=== PATIENT | female | born 1975 | race Hispanic/Latino ===

== ENCOUNTER 2018-05-10 17:00 | Inpatient (IN) | payer BC ==
--- NOTE | 2018-05-10 18:27 | RAD ---
Date of service: 05/10/2018 PROCEDURE: Right Ankle Radiographs. HISTORY: trauma COMPARISON: None available. FINDINGS: BONES: There is an acute mildly laterally and posterior displaced fracture in the lateral malleolus. Bone mineralization and alignment is normal. JOINTS: Small joint effusion. Ankle mortise maintained. Talar dome intact SOFT TISSUES: Moderate lateral soft tissue swelling OTHER FINDINGS: None. IMPRESSION: Acute mildly laterally and posteriorly displaced fracture in the lateral malleolus with moderate overlying soft tissue swelling.
--- NOTE | 2018-05-10 18:33 | ED PDOC ---
Lower Extremity Pain/Injury Time Seen by Provider: 05/10/18 17:14 Chief Complaint (Nursing): Lower Extremity Problem/Injury Chief Complaint (Provider): Lower Extremity Problem/Injury History Per: Patient History/Exam Limitations: no limitations Onset/Duration Of Symptoms: Hrs (1x hour prior to arrival) Current Symptoms Are (Timing): Still Present Severity: Moderate Additional Complaint(s): 43 year old female with no pertinent past medical history presents to the ED for an evaluation of a right ankle injury that occurred 1x hour prior to arrival. Patient states that she was ice skating earlier today, slipped and fell, injuring her right ankle. Patient denies having numbness or tingling. PMD: [facility] Past Medical History Reviewed: Historical Data, Nursing Documentation, Vital Signs Vital Signs: Last Vital Signs Temp 98.9 F 05/10/18 17:08 Pulse 75 05/10/18 17:08 Resp 16 05/10/18 17:08 BP 131/84 05/10/18 17:08 Pulse Ox 100 05/10/18 17:08 GUMARO report viewed?: Yes - Medical History PMH: Multiple Sclerosis - Surgical History Surgical History: - Family History Family History: States: No Known Family Hx - Social History Current smoker - smoking cessation education provided: No Alcohol: None Drugs: Denies - Home Medications Home Medications: Ambulatory Orders Medication Instructions Recorded RX: No Known Home Med 05/10/18 - Allergies Allergies/Adverse Reactions: Allergies Allergy/AdvReac Type Severity Reaction Status Date / Time No Known Allergies Allergy Verified 05/10/18 17:10 Review of Systems ROS Statement: Except As Marked, All Systems Reviewed And Found Negative Musculoskeletal: Positive for: Foot Pain (right ankle pain) Neurological: Negative for: Numbness ((-) tingling) Physical Exam - Reviewed Nursing Documentation Reviewed: Yes Vital Signs Reviewed: Yes - Physical Exam Appears: Positive for: Well, Non-toxic, No Acute Distress Head Exam: Positive for: ATRAUMATIC, NORMOCEPHALIC Pulses-Dorsalis Pedis (L): 2+ Pulses-Dorsalis Pedis (R): 2+ Extremity: Positive for: Tenderness (right ankle: moderate swelling and tenderness on lateral malleolus.), Capillary Refill (right foot and ankle: <2 seconds). Negative for: Deformity, Other (leg tenderness, knee tenderness, achilles tendon tenderness.) Neurologic/Psych: Positive for: Alert, Oriented (3x) - Laboratory Results Result Diagrams: 05/10/18 19:54 05/10/18 19:54 - ECG ECG: Positive for: Interpreted By Me ECG Rhythm: Positive for: Sinus Rhythm. Negative for: ST/T Changes Rate: 74 O2 Sat by Pulse Oximetry: 100 (RA) Pulse Ox Interpretation: Normal - Radiology X-Ray: Interpreted by Me (CXR) X-Ray Interpretation: No Acute Disease Medical Decision Making Medical Decision Makin:14 Initial impression: 43 year old female with right ankle pain status post fall. Initial plan: -- XRay ankle right 3 views -- tylenol 325 mg tab 650 mg PO -- reevaluation 18:07 XRay ankle right read and reviewed by radiologist FINDINGS: BONES: There is an acute mildly laterally and posterior displaced fracture in the lateral malleolus. Bone mineralization and alignment is normal. JOINTS: Small joint effusion. Ankle mortise maintained. Talar dome intact SOFT TISSUES: Moderate lateral soft tissue swelling OTHER FINDINGS: None. IMPRESSION: Acute mildly laterally and posteriorly displaced fracture in the lateral malleolus with moderate overlying soft tissue swelling. 18:[address] Gray (ortho resident) who discussed case with (covering for ) who requests that the patient be admitted to go to the OR tomorrow. Case discussed with . Arrangements made for admission. Labs, EKG, CXR ordered. Scribe Attestation: Documented by Cathi Randall, acting as a scribe for Cayden Del Toro Provider Scribe Attestation: All medical record entries made by the Scribe were at my direction and personally dictated by me. I have reviewed the chart and agree that the record accurately reflects my personal performance of the history, physical exam, medical decision making, and the department course for this patient. I have also personally directed, reviewed, and agree with the discharge instructions and disposition. Disposition - Clinical Impression Clinical Impression: Ankle fracture - Patient ED Disposition Is Patient to be Admitted: Yes - Disposition Disposition Time: 18:49 Condition: FAIR
--- NOTE | 2018-05-10 19:46 | CP.PCM.CON ---
History of Present Illness - History of Present Illness History of Present Illness: Consult Note for attending Dr. Savage: 43 y/o female patient, with PMH ofMS, seen and evaluated in the ED for R ankle pain. Patient states that she while skating today she felt down and twisted her R ankle inward. Patient states that she immediacy felt the pain and couldn't bear any weight over her R foot. She describes the pain as dull pain over her lateral malleolous. 5-6/10 on VAS scale. Patient states that She came directly t o ED. Patient states that she does feel mild pain while resting and the pain increases with weight bearing. Patient denies any tingling, numbness or burning sensation to her feet. She denies any loss of consciousness. She denies any recent N/V/F/C or SOB. She denies any other pedal complaints at this time. PMH: MS (last attack was decade ago) PSH: Appendectomy, Allergies: NKDA Social Hx: Denies tobacco use, EtOH use and illicit drug use Review of Systems - Review of Systems Review of Systems: As per HPI - Constitutional Constitutional: As Per HPI Past Patient History - Past Social History Alcohol: None Drugs: Denies - CARDIAC Hx Cardiac Disorders: No - PULMONARY Hx Respiratory Disorders: No - NEUROLOGICAL Hx Multiple Sclerosis: Yes - MUSCULOSKELETAL/RHEUMATOLOGICAL Hx Musculoskeletal Disorders: Yes Other/Comment: MS - PSYCHIATRIC Hx Substance Use: No Meds Allergies/Adverse Reactions: Allergies Allergy/AdvReac Type Severity Reaction Status Date / Time No Known Allergies Allergy Verified 05/10/18 17:10 Physical Exam - Constitutional Appears: Well, Non-toxic, No Acute Distress - Head Exam Head Exam: ATRAUMATIC, NORMOCEPHALIC - Extremities Exam Additional comments: RLE focused exam: Vasc: DP/PT 2/4 palpable, Cap refill < 3 seconds to all digits, Temp gradient warm to cool from proximal to distal. Mild ecchymosis and non pitting edema noted to R lateral malleolous Neuro: Gross and protective sensation intact Derm: No open lesions, no clinical signs of infection, Mild ecchymosis and non pitting edema noted to R lateral malleolous MSK: Pain upon palpation of the lateral malleolous, pain with Inversion, eversion mainly. MMT 5/5 to all groups despite pain and guarding - Neurological Exam Neurological exam: Alert, Oriented x3 - Psychiatric Exam Psychiatric exam: Normal Affect, Normal Mood Results - Vital Signs Recent Vital Signs: Last Vital Signs Temp 98.9 F 05/10/18 17:08 Pulse 75 05/10/18 17:08 Resp 16 05/10/18 17:08 BP 131/84 05/10/18 17:08 Pulse Ox 100 05/10/18 18:58 Assessment & Plan - Assessment and Plan (Free Text) Assessment: 43 y/o female patient seen and evaluated in the ED for R ankle pain secondary to fractured R fibula Plan: Patient seen and evaluated in the ED Plan discussed with Dr Savage Charts, labs and vitals reviewed; Afebrile R ankle x-rays; Mildly posteriorly and laterally displaced fracture of the blower fibula with soft tissue edema Patient placed posterior splint Patient educated RICE protocol Patient to remain strict NWB to RLE and to ambulate using crutches. Discussed with the patient that her fracture will need surgery for fixation and she might go to the OR tomorrow Patient to be admitted by the primary team for OR tomorrow. Plan for patient to go to surgery Tomorrow at 10:30 am after medical clearance Pending medical clearance. NPO starting at midnight. Patient expressed verbal understanding Patient will be followed up by Dr. Savage Thank you for the consult. - Date & Time Date: 05/10/18 Time: 19:46
[2018-05-10 20:08] LABS: BASO % 0.4 % (0.0-2.0); EOS % 0.7 % (0.0-4.0); HEMOGLOBIN 12.1 g/dL (12.0-16.0); LYMPH # 1.5 K/uL (1.0-4.3); LYMPH % 21.3 % (20.0-40.0); MEAN CELL VOLUME 81.9 fl (81.0-99.0); MEAN CORPUSCULAR HEMOGLOBIN 26.3 pg (27.0-31.0); MEAN CORPUSCULAR HGB CONC 32.1 g/dL (33.0-37.0); MEAN PLATELET VOLUME 9.2 fl (7.2-11.7); MONO # 0.5 K/uL (0.0-0.8); MONO % 7.4 % (0.0-10.0); NEUT # 4.8 K/uL (1.8-7.0); NEUT % 70.2 % (50.0-75.0); RBC 4.6 Mil/uL (3.80-5.20); RED CELL DISTRIBUTION WIDTH 14.5 % (11.5-14.5); WHITE BLOOD COUNT 6.9 K/uL (4.8-10.8)
[2018-05-10 20:09] LABS: INR 1.1; PROTHROMBIN TIME 12.1 Seconds (9.8-13.1)
[2018-05-10 20:11] LABS: PARTIAL THROMBOPLASTIN TIME 28.4 Seconds (25.6-37.1)
[2018-05-10 20:13] LABS: ALB/GLOB RATIO 1.3 (1.0-2.1); ALBUMIN 4.5 g/dL (3.5-5.0); ALT/SGPT 28 U/L (9-52); AST/SGOT 29 U/L (14-36); BLOOD UREA NITROGEN 13 mg/dl (7-17); CALCIUM 10.9 mg/dL (8.4-10.2); GFR NON-AFRICAN AMERICAN > 60
[2018-05-10 20:35] LABS: SQUAMOUS EPITHIAL 2 /hpf (0-5); URINE BACTERIA RARE (<OCC); URINE BILIRUBIN NEGATIVE (NEGATIVE); URINE BLOOD SMALL (NEGATIVE); URINE CLARITY CLEAR (Clear); URINE COLOR STRAW (YELLOW); URINE GLUCOSE (UA) NEG (NEGATIVE); URINE LEUKOCYTE ESTERASE NEG Leu/uL (Negative); URINE PROTEIN NEGATIVE (NEGATIVE); URINE UROBILINOGEN 0.2-1.0 mg/dL (0.2-1.0)
[2018-05-10] MEDS ORDERED: Morphine 4 MG/ML VIAL IVP PRN (22:09)
[2018-05-10] MEDS: Sodium Chloride 0.9% 1,000 ML IV SCH (22:46)
[2018-05-11 06:02] LABS: HEMOGLOBIN 10.4 g/dL (12.0-16.0); MEAN CELL VOLUME 83.5 fl (81.0-99.0); MEAN CORPUSCULAR HEMOGLOBIN 26.4 pg (27.0-31.0); MEAN CORPUSCULAR HGB CONC 31.7 g/dL (33.0-37.0); RBC 3.92 Mil/uL (3.80-5.20); RED CELL DISTRIBUTION WIDTH 14.5 % (11.5-14.5); WHITE BLOOD COUNT 6.1 K/uL (4.8-10.8)
[2018-05-11 06:09] LABS: INR 1.1; PROTHROMBIN TIME 12.4 Seconds (9.8-13.1)
[2018-05-11 06:12] LABS: PARTIAL THROMBOPLASTIN TIME 27.1 Seconds (25.6-37.1)
[2018-05-11 06:27] LABS: ALB/GLOB RATIO 1.1 (1.0-2.1); ALBUMIN 3.5 g/dL (3.5-5.0); ALT/SGPT 19 U/L (9-52); AST/SGOT 22 U/L (14-36); BLOOD UREA NITROGEN 11 mg/dl (7-17); CALCIUM 9.8 mg/dL (8.4-10.2); GFR NON-AFRICAN AMERICAN > 60
[2018-05-11] MEDS: Sodium Chloride 0.9% 1,000 ML IV SCH ×2 (06:30→07:08)
--- NOTE | 2018-05-11 07:47 | CP.PCM.HP ---
History of Present Illness - History of Present Illness History of Present Illness: pt admitted for r ankle fx after falling while ice skating for orif and plating today no fcnvd bw noted cxr and ekg reviewed pain controlled has been npo case dc with dr rodgers for or at 10-11 med /surg hx noted mo current ms s/s and not on any lary Present on Admission - Present on Admission Any Indicators Present on Admission: No Review of Systems - Musculoskeletal Musculoskeletal: As Per HPI, Arthralgias Past Patient History - Past Medical History & Family History Past Medical History?: Yes - Past Social History Alcohol: None Drugs: Denies - CARDIAC Hx Cardiac Disorders: No - PULMONARY Hx Respiratory Disorders: No - NEUROLOGICAL Hx Multiple Sclerosis: Yes - HEENT Hx HEENT Problems: No - RENAL Hx Chronic Kidney Disease: No - ENDOCRINE/METABOLIC Hx Endocrine Disorders: No - HEMATOLOGICAL/ONCOLOGICAL Hx Blood Disorders: No - INTEGUMENTARY Hx Dermatological Problems: No - MUSCULOSKELETAL/RHEUMATOLOGICAL Hx Musculoskeletal Disorders: Yes Hx Falls: Yes - GASTROINTESTINAL Hx Gastrointestinal Disorders: No - GENITOURINARY/GYNECOLOGICAL Hx Genitourinary Disorders: No - PSYCHIATRIC Hx Substance Use: No - SURGICAL HISTORY Hx Surgeries: Yes Hx Appendectomy: Yes (2007) Hx Section: Yes (2008) Other/Comment: Removal Of Right Breast Lump 4 yrs. ago - ANESTHESIA Hx Anesthesia: Yes Hx Anesthesia Reactions: No Hx Malignant Hyperthermia: No Has any member of the family had a problem w/ anesthesia?: No Meds Home Medications: Home Medication List Medication Instructions Recorded Confirmed Type oxyCODONE/Acetaminophen [Percocet 1 tab PO Q4 PRN #10 tab 05/11/18 Rx 5/325 mg Tab] Allergies/Adverse Reactions: Allergies Allergy/AdvReac Type Severity Reaction Status Date / Time No Known Allergies Allergy Verified 05/10/18 17:10 Physical Exam - Constitutional Appears: Well, Non-toxic, No Acute Distress - Head Exam Head Exam: ATRAUMATIC, NORMAL INSPECTION, NORMOCEPHALIC - Eye Exam Eye Exam: EOMI, Normal appearance, PERRL Pupil Exam: NORMAL ACCOMODATION, PERRL - ENT Exam ENT Exam: Mucous Membranes Moist, Normal Exam - Neck Exam Neck exam: Positive for: Normal Inspection - Respiratory Exam Respiratory Exam: Clear to Auscultation Bilateral, NORMAL BREATHING PATTERN - Cardiovascular Exam Cardiovascular Exam: REGULAR RHYTHM - GI/Abdominal Exam GI & Abdominal Exam: Normal Bowel Sounds, Soft. absent: Tenderness - Rectal Exam Rectal Exam: NORMAL INSPECTION - Extremities Exam Extremities exam: Positive for: full ROM, normal capillary refill, normal inspection, pedal pulses present - Back Exam Back exam: NORMAL INSPECTION - Neurological Exam Neurological exam: Alert, CN II-XII Intact, Normal Gait, Oriented x3, Reflexes Normal - Psychiatric Exam Psychiatric exam: Normal Affect, Normal Mood - Skin Skin Exam: Dry, Intact, Normal Color, Warm Results - Vital Signs Recent Vital Signs: Last Vital Signs Temp 98.1 F 05/10/18 23:41 Pulse 68 05/10/18 23:41 Resp 20 05/10/18 23:41 BP 98/65 L 05/10/18 23:41 Pulse Ox 98 05/10/18 23:41 - Labs Result Diagrams: 05/11/18 05:25 05/11/18 05:25 Labs: Laboratory Results - last 24 hr 05/10/18 05/10/18 05/10/18 19:54 19:54 19:54 WBC 6.9 RBC 4.60 Hgb 12.1 Hct 37.7 MCV 81.9 MCH 26.3 L MCHC 32.1 L RDW 14.5 Plt Count 209 MPV 9.2 Neut % (Auto) 70.2 Lymph % (Auto) 21.3 [place] % (Auto) 7.4 Eos % (Auto) 0.7 Baso % (Auto) 0.4 Neut # (Auto) 4.8 Lymph # (Auto) 1.5 [place] # (Auto) 0.5 Eos # (Auto) 0.0 Baso # (Auto) 0.0 PT 12.1 INR 1.1 APTT 28.4 Sodium 138 Potassium 4.4 Chloride 105 Carbon Dioxide 24 Anion Gap 13 BUN 13 Creatinine 0.5 L Est GFR ( Amer) > 60 Est GFR (Non-Af Amer) > 60 Random Glucose 92 Calcium 10.9 H Total Bilirubin 0.2 AST 29 ALT 28 Alkaline Phosphatase 67 Total Protein 7.9 Albumin 4.5 Globulin 3.4 Albumin/Globulin Ratio 1.3 Serum HCG, Qual Urine Color Urine Clarity Urine pH Ur Specific [place] Urine Protein Urine Glucose (UA) Urine Ketones Urine Blood Urine Nitrate Urine Bilirubin Urine Urobilinogen Ur Leukocyte Esterase Urine RBC (Auto) Urine Microscopic WBC Ur Squamous Epith Cells Urine Bacteria Blood Type Blood Type Confirm Antibody Screen BBK History Checked 05/10/18 05/10/18 05/10/18 19:54 19:54 20:05 WBC RBC Hgb Hct MCV MCH MCHC RDW Plt Count MPV Neut % (Auto) Lymph % (Auto) [place] % (Auto) Eos % (Auto) Baso % (Auto) Neut # (Auto) Lymph # (Auto) [place] # (Auto) Eos # (Auto) Baso # (Auto) PT INR APTT Sodium Potassium Chloride Carbon Dioxide Anion Gap BUN Creatinine Est GFR ( Amer) Est GFR (Non-Af Amer) Random Glucose Calcium Total Bilirubin AST ALT Alkaline Phosphatase Total Protein Albumin Globulin Albumin/Globulin Ratio Serum HCG, Qual Negative Urine Color Urine Clarity Urine pH Ur Specific [place] Urine Protein Urine Glucose (UA) Urine Ketones Urine Blood Urine Nitrate Urine Bilirubin Urine Urobilinogen Ur Leukocyte Esterase Urine RBC (Auto) Urine Microscopic WBC Ur Squamous Epith Cells Urine Bacteria Blood Type O POSITIVE Blood Type Confirm O POSITIVE Antibody Screen Negative BBK History Checked No verified bt 05/10/18 05/11/18 05/11/18 20:16 05:25 05:25 WBC RBC Hgb Hct MCV MCH MCHC RDW Plt Count MPV Neut % (Auto) Lymph % (Auto) [place] % (Auto) Eos % (Auto) Baso % (Auto) Neut # (Auto) Lymph # (Auto) [place] # (Auto) Eos # (Auto) Baso # (Auto) PT 12.4 INR 1.1 APTT 27.1 Sodium 139 Potassium 4.2 Chloride 110 H Carbon Dioxide 24 Anion Gap 9 L BUN 11 Creatinine 0.5 L Est GFR ( Amer) > 60 Est GFR (Non-Af Amer) > 60 Random Glucose 88 Calcium 9.8 Total Bilirubin 0.3 AST 22 ALT 19 Alkaline Phosphatase 47 Total Protein 6.5 Albumin 3.5 D Globulin 3.0 Albumin/Globulin Ratio 1.1 Serum HCG, Qual Urine Color Straw Urine Clarity Clear Urine pH 6.0 Ur Specific [place] 1.008 Urine Protein Negative Urine Glucose (UA) Neg Urine Ketones Negative Urine Blood Small Urine Nitrate Negative Urine Bilirubin Negative Urine Urobilinogen 0.2-1.0 Ur Leukocyte Esterase Neg Urine RBC (Auto) 4 H Urine Microscopic WBC < 1 Ur Squamous Epith Cells 2 Urine Bacteria Rare Blood Type Blood Type Confirm Antibody Screen BBK History Checked 05/11/18 05:25 WBC 6.1 RBC 3.92 Hgb 10.4 L Hct 32.8 L MCV 83.5 MCH 26.4 L MCHC 31.7 L RDW 14.5 Plt Count 164 MPV Neut % (Auto) Lymph % (Auto) [place] % (Auto) Eos % (Auto) Baso % (Auto) Neut # (Auto) Lymph # (Auto) [place] # (Auto) Eos # (Auto) Baso # (Auto) PT INR APTT Sodium Potassium Chloride Carbon Dioxide Anion Gap BUN Creatinine Est GFR ( Amer) Est GFR (Non-Af Amer) Random Glucose Calcium Total Bilirubin AST ALT Alkaline Phosphatase Total Protein Albumin Globulin Albumin/Globulin Ratio Serum HCG, Qual Urine Color Urine Clarity Urine pH Ur Specific [place] Urine Protein Urine Glucose (UA) Urine Ketones Urine Blood Urine Nitrate Urine Bilirubin Urine Urobilinogen Ur Leukocyte Esterase Urine RBC (Auto) Urine Microscopic WBC Ur Squamous Epith Cells Urine Bacteria Blood Type Blood Type Confirm Antibody Screen BBK History Checked Assessment & Plan (1) DVT prophylaxis Assessment and Plan: scd and ae hold will start anticoag if admitted 24 h postop Status: Acute (2) Ankle fracture Assessment and Plan: pain control npo ortho medically cleared for orif pt is amb with crutches non wt bearing Status: Acute Decision To Admit - Pt Status Changed To: Hospital Disposition Of: Observation - . Bed Request Type: Med/Surg Admitting Physician: Brandy Romero
--- NOTE | 2018-05-11 08:49 | RAD ---
Date of service: 05/10/2018 HISTORY: clearance COMPARISON: No prior. FINDINGS: LUNGS: The lungs are well inflated and clear. PLEURA: No pleural effusions or pneumothorax. CARDIOVASCULAR: The heart is normal in size. No aortic atherosclerotic calcification present. OSSEOUS STRUCTURES: Within normal limits for the patient's age. VISUALIZED UPPER ABDOMEN: Normal. OTHER FINDINGS: None. IMPRESSION: No active pulmonary disease.
[2018-05-11] MEDS ORDERED: Midazolam 2 MG/2 ML VIAL ONE (11:50)
[2018-05-11] MEDS ORDERED: Succinylcholine 200 mg/10 ml Inj IV ONE (11:50)
[2018-05-11] MEDS ORDERED: Propofol 10 mg/ml Inj (20 ML) ONE ×2 (11:50→13:51)
[2018-05-11] MEDS ORDERED: Lactated Ringer's 1,000 ML IV ONE ×2 (11:55→15:00)
[2018-05-11] MEDS ORDERED: Ropivacaine 0.5% 30ML IV ONE (11:57)
[2018-05-11] MEDS ORDERED: ceFAZolin IV 1 gm in Dextrose 1 GM/50 ML BAG IVPB ONE ×2 (12:04→12:23)
[2018-05-11] MEDS ORDERED: Lidocaine 4% (Laryng-O-Jet) Kit MM ONE (12:16)
--- NOTE | 2018-05-11 12:21 | PCM.ANESB2 ---
Popliteal Nerve Block - Popliteal Nerve Block Date of Procedure: 05/11/18 Anesthesiologist: collin Pre-Procedure Diagnosis: r ankle fx Post-Procedure Diagnosis: same Procedure Performed: Popliteal Nerve Block Right - Procedure Popliteal Nerve Block: This procedure was explained to the patient that it is for post-operative pain management. Consent was obtained after a thorough discussion with the patient regarding the benefits and possible complications of local anesthetic block of the sciatic nerve at the popliteal level. The patient was brought to the operating room and standard monitors are applied. Time-out was held with the circulating nurse to confirm the correct surgery and the appropriate block. After applying oxygen by nasal cannula and administering IV Sedation, patient's operative leg was gently raised and supported and the groove in between the biceps femoris and vastus lateralis muscles was carefully palpated. The skin approximately 8cm above the popliteal crease was then marked. The ultrasound transducer was then applied to the posterior thigh approximately 8cm above the popliteal crease in the transverse plane and the sciatic nerve before its division was visualized lateral to the popliteal artery and in between the bicep femoris and semimembranosus/semitendinosus muscles. After identification, the lateral portion of the thigh was prepped with Betadine solution three times and Lidocaine 1% was injected subcutaneously for topical anesthesia. At this point, a # 21 gauge Stimuplex insulated 4 inch needle was inserted into pre-marked area and advanced in a perpendicular direction. The needle was inserted above the ultrasound transducer in-plane towards the sciatic nerve in a [id number] direction. Needle advancement was performed carefully under direct ultrasound visualization. Nerve stimulator was used and dorsiflexion of the _right____ foot was elicited at a current of __2.0___ MA. After repeated negative aspiration, __1___cc of _0.5____ % __ropivicaine was injected and this was flowed with __19____ cc of ___0.5___% _ropivicaine . Under ultrasound guidance the local anesthetics were observed surrounding sciatic nerve . The needle was removed intact and sterile dressing was applied. The patient tolerated the popliteal nerve block well with stable vital signs and was subsequently prepared for the surgery.
[2018-05-11] MEDS ORDERED: HYDROmorphone 0.5 mg/0.5 ml ISec IVP PRN (12:22)
[2018-05-11] MEDS ORDERED: ePHEDrine 50 mg/ml Inj ONE (12:40)
[2018-05-11] MEDS ORDERED: Dexamethasone 4 mg/1 ml ONE (12:55)
[2018-05-11] MEDS ORDERED: Lactated Ringer's 500 ML IV ONE (13:22)
--- NOTE | 2018-05-11 14:02 | RAD ---
Date of service: 05/11/2018 PROCEDURE: Fluoroscopic assistance in excess of 1 hour. HISTORY: RIGHT ANKLE COMPARISON: None TECHNIQUE: Standard protocol for this study/examination. FINDINGS: Total fluoroscopic time (continuous mode) utilized during the procedure 31.4 seconds. Total exam DLP: 0.58 (mGy). IMPRESSION: Submitted images from the current procedure: 3.0.
[2018-05-11] MEDS ORDERED: Oxycodone/Acetaminophen 5/325 mg Tab PO PRN ×2 (14:07)
--- NOTE | 2018-05-11 14:14 | PCM.SURG1 ---
Surgeon's Initial Post Op Note - Surgeon's Notes Surgeon: Dr. Hussein Petersen Set Off Press Operator: Eduardo Mike PGY-2, Huseyin Suarez Type of Anesthesia: General LMA Anesthesia Administered By: Dr. Ignacio Pre-Operative Diagnosis: Right ankle displaced fibular fracture Operative Findings: see dictation. materials: 2-0 vicryl, 4-0 monocril, screws and plate Post-Operative Diagnosis: same Operation Performed: Open reduction internal fixation with screws and plate of right displaced ankle fracture Specimen/Specimens Removed: none Estimated Blood Loss: EBL {In ML}: 25 Blood Products Given: N/A Drains Used: No Drains Post-Op Condition: Good Date of Surgery/Procedure: 05/11/18 Time of Surgery/Procedure: 12:00
[2018-05-11 16:04] VITALS: O2SAT 99
[2018-05-11 16:48] VITALS: RESP 18
--- NOTE | 2018-05-11 16:52 | RAD ---
Date of service: 05/11/2018 PROCEDURE: Right Ankle Radiographs. HISTORY: s/p right ankle ORIF COMPARISON: Preoperative study May 10, 2018. FINDINGS: BONES: Major fracture fragments are anatomically aligned. No evidence of orthopedic hardware failure. JOINTS: Normal. No osteoarthritis. Ankle mortise maintained. Talar dome intact SOFT TISSUES: Normal. OTHER FINDINGS: None. IMPRESSION: Satisfactory postoperative status.
[2018-05-11 17:20] VITALS: BP 107/75; PULSE 71; TEMP 98.1
--- NOTE | 2018-05-11 18:26 | CARD ---
APPROVED REPORT Date of service: 05/10/2018 EKG Measurement Heart [id number] <Conclusion> Normal sinus rhythm Normal ECG
--- NOTE | 2018-05-11 19:04 | CP.PCM.DIS ---
Provider - Provider Date of Admission: 05/10/18 19:42 Attending physician: Brandy Romero MD Consults: 05/10/18 19:44 Orthopedic Consult Stat Comment: Consulting Provider: Nicola Savage Consulting Physician: Nicola Savage Reason for Consult: ankle fracture Time Spent in preparation of Discharge (in minutes): 15 Diagnosis - Discharge Diagnosis (1) DVT prophylaxis Status: Acute (2) Ankle fracture Status: Acute Hospital Course - Lab Results Lab Results: Most Recent Lab Values WBC 6.1 K/uL (4.8-10.8) 05/11/18 05:25 RBC 3.92 Mil/uL (3.80-5.20) 05/11/18 05:25 Hgb 10.4 g/dL (12.0-16.0) L 05/11/18 05:25 Hct 32.8 % (34.0-47.0) L 05/11/18 05:25 MCV 83.5 fl (81.0-99.0) 05/11/18 05:25 MCH 26.4 pg (27.0-31.0) L 05/11/18 05:25 MCHC 31.7 g/dL (33.0-37.0) L 05/11/18 05:25 RDW 14.5 % (11.5-14.5) 05/11/18 05:25 Plt Count 164 K/uL (130-400) 05/11/18 05:25 MPV 9.2 fl (7.2-11.7) 05/10/18 19:54 Neut % (Auto) 70.2 % (50.0-75.0) 05/10/18 19:54 Lymph % (Auto) 21.3 % (20.0-40.0) 05/10/18 19:54 Cole % (Auto) 7.4 % (0.0-10.0) 05/10/18 19:54 Eos % (Auto) 0.7 % (0.0-4.0) 05/10/18 19:54 Baso % (Auto) 0.4 % (0.0-2.0) 05/10/18 19:54 Neut # (Auto) 4.8 K/uL (1.8-7.0) 05/10/18 19:54 Lymph # (Auto) 1.5 K/uL (1.0-4.3) 05/10/18 19:54 Cole # (Auto) 0.5 K/uL (0.0-0.8) 05/10/18 19:54 Eos # (Auto) 0.0 K/uL (0.0-0.7) 05/10/18 19:54 Baso # (Auto) 0.0 K/uL (0.0-0.2) 05/10/18 19:54 PT 12.4 Seconds (9.8-13.1) 05/11/18 05:25 INR 1.1 05/11/18 05:25 APTT 27.1 Seconds (25.6-37.1) 05/11/18 05:25 Sodium 139 mmol/l (132-148) 05/11/18 05:25 Potassium 4.2 MMOL/L (3.6-5.0) 05/11/18 05:25 Chloride 110 mmol/L (98-107) H 05/11/18 05:25 Carbon Dioxide 24 mmol/L (22-30) 05/11/18 05:25 Anion Gap 9 (10-20) L 05/11/18 05:25 BUN 11 mg/dl (7-17) 05/11/18 05:25 Creatinine 0.5 mg/dl (0.7-1.2) L 05/11/18 05:25 Est GFR ( Amer) > 60 05/11/18 05:25 Est GFR (Non-Af Amer) > 60 05/11/18 05:25 Random Glucose 88 mg/dL (65-105) 05/11/18 05:25 Calcium 9.8 mg/dL (8.4-10.2) 05/11/18 05:25 Total Bilirubin 0.3 mg/dl (0.2-1.3) 05/11/18 05:25 AST 22 U/L (14-36) 05/11/18 05:25 ALT 19 U/L (9-52) 05/11/18 05:25 Alkaline Phosphatase 47 U/L (38-126) 05/11/18 05:25 Total Protein 6.5 G/DL (6.3-8.2) 05/11/18 05:25 Albumin 3.5 g/dL (3.5-5.0) D 05/11/18 05:25 Globulin 3.0 gm/dL (2.2-3.9) 05/11/18 05:25 Albumin/Globulin Ratio 1.1 (1.0-2.1) 05/11/18 05:25 Serum HCG, Qual Negative (NEGATIVE) 05/10/18 19:54 Urine Color Straw (YELLOW) 05/10/18 20:16 Urine Clarity Clear (Clear) 05/10/18 20:16 Urine pH 6.0 (5.0-8.0) 05/10/18 20:16 Ur Specific [place] 1.008 (1.003-1.030) 05/10/18 20:16 Urine Protein Negative mg/dL (NEGATIVE) 05/10/18 20:16 Urine Glucose (UA) Neg mg/dL (NEGATIVE) 05/10/18 20:16 Urine Ketones Negative mg/dL (NEGATIVE) 05/10/18 20:16 Urine Blood Small (NEGATIVE) 05/10/18 20:16 Urine Nitrate Negative (NEGATIVE) 05/10/18 20:16 Urine Bilirubin Negative (NEGATIVE) 05/10/18 20:16 Urine Urobilinogen 0.2-1.0 mg/dL (0.2-1.0) 05/10/18 20:16 Ur Leukocyte Esterase Neg Sadie/uL (Negative) 05/10/18 20:16 Urine RBC (Auto) 4 /hpf (0-3) H 05/10/18 20:16 Urine Microscopic WBC < 1 /hpf (0-5) 05/10/18 20:16 Ur Squamous Epith Cells 2 /hpf (0-5) 05/10/18 20:16 Urine Bacteria Rare (<OCC) 05/10/18 20:16 Blood Type O POSITIVE 05/10/18 19:54 Blood Type Confirm O POSITIVE 05/10/18 20:05 Antibody Screen Negative 05/10/18 19:54 BBK History Checked No verified bt 05/10/18 19:54 - Hospital Course Hospital Course: ortho pain control orif Discharge Exam - Head Exam Head Exam: ATRAUMATIC, NORMAL INSPECTION, NORMOCEPHALIC Discharge Plan - Discharge Medications Prescriptions: oxyCODONE/Acetaminophen [Percocet 5/325 mg Tab] 1 tab PO Q4 PRN #10 tab PRN Reason: pain 6-10 - Follow Up Plan Condition: FAIR Disposition: HOME/ ROUTINE Instructions: How to Use Crutches, Ankle Fracture (DC), Open Reduction and Internal Fixation Surgery (DC), Nerve Blocks Additional Instructions: follow up with primary MD 1 week non weight bearing to right ankle. final dx-r fibular fx w/ displacement doign well. 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
--- NOTE | 2018-05-11 20:23 | OP ---
PROCEDURE DATE: 05/11/2018 PREOPERATIVE DIAGNOSIS: Right ankle distal fibular fracture, bimalleolar equivalent. POSTOPERATIVE DIAGNOSIS: Right ankle distal fibular fracture, bimalleolar equivalent. PROCEDURES: 1. Right distal fibular open reduction and internal fixation using Synthes distal fibula plate, 57921. 2. Debridement of distal fibular bone, 59646. 3. Use of intraoperative fluoroscopy, 46715. SURGEON: Nicola Savage MD ANESTHESIA: Right lower extremity block and general. ESTIMATED BLOOD LOSS: None. COMPLICATIONS: None. INDICATION: This is a 43-year-old female who sustained a fall while ice-skating yesterday. The patient presented to [facility] with displaced and swollen ankle with pain and inability to bear weight. Initial x-rays confirmed distal fibular fracture with displacement. DESCRIPTION OF PROCEDURE: The patient was taken to the operating room and placed supine on the operating room table. After regional anesthesia was given with prophylactic antibiotics, a well-padded non-sterile tourniquet was placed on the patient's right upper calf area. The right lower extremity was then prepped and draped in a standard surgical fashion and time-out was performed. A longitudinal incision was outlined over the distal fibula. The leg was elevated and exsanguinated and tourniquet was inflated to 250 mmHg. The incision was made through the skin only. All superficial veins were cauterized. The dissection was carried down identifying the periosteum up to fibula. The superficial peroneal nerve was identified and protected throughout the procedure. The fracture site was then identified. Local debridement of the bone using rongeur, curettes suction was performed, also irrigation was used. The fracture fragments were then identified. This was a spiral oblique fracture. Direct reduction was then performed with traction and rotation. The fracture fragments were then held provisionally with the reduction clamp. A 2.7-mm screw was placed in a lag screw technique across the fracture fragment. Next, a distal fibular Synthes plate was provisionally placed on the distal fibula and held with K wires. Fluoroscopic images then confirmed well-aligned anatomic reduction of the distal fibula with aligned mortise ankle joint. A combination of cortical and locking screws were then placed in proximal and distal holes of the plate in AO standard technique providing a rigid fixation and neutralization for the fracture fragments. Fluoroscopic images then again confirmed well-aligned distal fibula with good placement of hardware, no screws penetrating the joint. The deep layers of periosteum were then closed with 2-0 Vicryl followed by 2-0 for subcu layer and 4-0 Monocryl for running subcuticular layer. Steri-Strips were applied with Xeroform, 4 x 4, and Mary, and a posterior splint. The patient tolerated the procedure well. She will continue with nonweightbearing and follow up with me in 1 week for postoperative exam and dressing change. Nicola Savage MD
--- NOTE | 2018-05-11 23:00 | CON ---
DATE: 05/10/2018 REASON FOR CONSULTATION: Right ankle fracture. HISTORY OF PRESENT ILLNESS: This is a 43-year-old female who presents to [facility] from ice skating fall. The patient was unable to bear weight due to pain, deformity and swelling of the ankle. Initial x-rays confirmed distal fibular fracture. PHYSICAL EXAMINATION EXTREMITIES: There is diffuse swelling of the ankle. The patient is tender over the medial and lateral malleoli of the ankle. There is positive tenderness with stress test over the medial side. Skin is intact. There is good capillary refill and palpable distal pulses. IMAGING STUDIES: X-rays were seen and reviewed, which showed displaced oblique distal fibular fracture. ASSESSMENT: Right ankle distal fibular fracture with bimalleolar equivalent fracture fragment. PLAN: We discussed the above findings with the patient. Recommended surgery due to instability and deformity of the ankle. This will include open reduction and internal fixation of the distal fibula. The patient will be admitted for medical clearance and undergo urgent surgery. Nicola Savage MD
== END 2018-05-11 17:50 | disposition home or self-care (01) | DRG 494 ==
LOC: H.ER 17:00 → H.ERHOLD 19:42 → H.MEDSURG1 21:40
PROVIDERS: ADMIT Family Medicine; ATTEND Family Medicine
PROC: 3E0T3BZ Introduction of Anesthetic Agent into Peripheral Nerves and Plexi, Percutaneous Approach (ICD-10-PCS; 2018-05-11)
PROC: 0QSJ04Z Reposition Right Fibula with Internal Fixation Device, Open Approach (ICD-10-PCS; principal; 2018-05-11 10:30)
PROC: 0QBJ0ZZ Excision of Right Fibula, Open Approach (ICD-10-PCS; 2018-05-11 10:30)
DX: S82.61XA Displaced fracture of lateral malleolus of right fibula, initial encounter for closed fracture (principal); G35 Multiple sclerosis; V00.211A Fall from ice-skates, initial encounter; Y93.21 Activity, ice skating; Y92.838 Other recreation area as the place of occurrence of the external cause